=== PATIENT | female | born 1995 | race Caucasian/White ===

== ENCOUNTER 2017-06-12 15:19 | Emergency (ER) | payer OTHER ==
[2017-06-12 15:21] VITALS: BP 122/75; PULSE 97; RESP 16; TEMP 98.2; O2SAT 100
--- NOTE | 2017-06-12 15:57 | PD ---
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 Denies radiation of pain and is constant, mild to moderate. Patient states that she is also had a yellow, white discharge about 1 week. Patient was examined at [facility] and they were unable to locate her IUD that was placed in January. States she does not have normal menstrual periods because of the IUD and states that she spots throughout the month. In addition she had a urine test that was negative per patient. Patient denies fever, chills, nausea, vomiting, diarrhea. Also denies any urinary complaints. States she has one partner. She takes no medications and had no surgeries. PFSH Past Medical History ?: Not LMP: 2 weeks ago / STATES USUALLY JUST SPOTS FOR A DAY Social History Alcohol Use: No Tobacco Use: Yes Substance Use: Yes (marijuana) Allergies-Medications (Allergen,Severity, Reaction): Coded Allergies: menthol (Verified Allergy, Severe, RESP, 06/12/17) Reported Meds & Prescriptions Reported Meds & Active Scripts Active Metronidazole 500 Mg Tab 500 Mg PO BID 7 Days Review of Systems Except as stated in HPI: all other systems reviewed are Neg Physical Exam Narrative GENERAL: Well-developed well-nourished in no apparent distress SKIN: Focused skin assessment warm/dry. HEAD: Atraumatic. Normocephalic. EYES: Pupils equal and round. No scleral icterus. No injection or drainage. ENT: No nasal bleeding or discharge. Mucous membranes pink and moist. NECK: Trachea midline. No JVD. CARDIOVASCULAR: Regular rate and rhythm. No murmur appreciated. RESPIRATORY: No accessory muscle use. Clear to auscultation. Breath sounds equal bilaterally. - no external lesions, masses, or rashes. symmetric labia. vaginal exam- white and yellow exudate with clear secretions from os. anterior aspect of cervix- small portion of IUD visualized. No CMT, no adnexal masses. GASTROINTESTINAL: soft, mildly tender, lower abdominal region without masses, rebound tenderness. negative psoas. MUSCULOSKELETAL: No obvious deformities. No clubbing. No cyanosis. No edema. NEUROLOGICAL: Awake and alert. No obvious cranial nerve deficits. Motor grossly within normal limits. Normal speech. PSYCHIATRIC: Appropriate mood and affect; insight and judgment normal. Data Data Last Documented VS Vital Signs Date Time Temp Pulse Resp B/P (MAP) Pulse Ox O2 Delivery O2 Flow Rate FiO2 06/12/17 15:21 98.2 97 16 122/75 (91) 100 Room Air Orders Orders Complete Blood Count With Diff (06/12/17 16:15) Comprehensive Metabolic Panel (06/12/17 16:15) Gc And Chlamydia Pcr (06/12/17 16:15) Wet Prep Profile (06/12/17 16:15) Urinalysis - C+S If Indicated (06/12/17 16:15) Iv Access Insert/Monitor (06/12/17 16:15) Sodium Chloride 0.9% Flush (Ns Flush) (06/12/17 16:15) Sodium Chlor 0.9% 1000 Ml Inj (Ns 1000 M (06/12/17 16:15) Ed Urine Pregnancytest Poc (06/12/17 16:15) Us Pelvis Comp W Dop Transvag (06/12/17 16:15) Ed Discharge Order (06/12/17 17:45) Labs Laboratory Tests Test 06/12/17 16:35 06/12/17 16:40 Urine Color LIGHT-YELLOW Urine Turbidity CLEAR Urine pH 7.5 Urine Specific [place] 1.013 Urine Protein NEG mg/dL Urine Glucose (UA) NEG mg/dL Urine Ketones NEG mg/dL Urine Occult Blood NEG Urine Nitrite NEG Urine Bilirubin NEG Urine Urobilinogen LESS THAN 2.0 MG/DL Urine Leukocyte Esterase NEG Urine WBC LESS THAN 1 /hpf Microscopic Urinalysis Comment CULT NOT INDICATED Clue Cells (Wet Prep) NONE SEEN Vaginal Trichomonas (Wet Prep) NONE SEEN Vaginal Yeast (Wet Prep) NONE SEEN Chlamydia trachomatis DNA (PCR) NOT DETECTED Neisseria gonorrhoeae DNA (PCR) NOT DETECTED White Blood Count 11.3 TH/MM3 Red Blood Count 4.60 MIL/MM3 Hemoglobin 14.2 GM/DL Hematocrit 40.1 % Mean Corpuscular Volume 87.1 FL Mean Corpuscular Hemoglobin 30.9 PG Mean Corpuscular Hemoglobin Concent 35.5 % Red Cell Distribution Width 13.0 % Platelet Count 179 TH/MM3 Mean Platelet Volume 9.5 FL Neutrophils (%) (Auto) 72.1 % Lymphocytes (%) (Auto) 20.0 % Monocytes (%) (Auto) 6.5 % Eosinophils (%) (Auto) 1.0 % Basophils (%) (Auto) 0.4 % Neutrophils # (Auto) 8.2 TH/MM3 Lymphocytes # (Auto) 2.3 TH/MM3 Monocytes # (Auto) 0.7 TH/MM3 Eosinophils # (Auto) 0.1 TH/MM3 Basophils # (Auto) 0.1 TH/MM3 CBC Comment DIFF FINAL Differential Comment Blood Urea Nitrogen 12 MG/DL Creatinine 0.68 MG/DL Random Glucose 86 MG/DL Total Protein 7.4 GM/DL Albumin 3.8 GM/DL Calcium Level 8.7 MG/DL Alkaline Phosphatase 70 U/L Aspartate Amino Transf (AST/SGOT) 14 U/L Alanine Aminotransferase (ALT/SGPT) 15 U/L Total Bilirubin 0.4 MG/DL Sodium Level 138 MEQ/L Potassium Level 3.8 MEQ/L Chloride Level 105 MEQ/L Carbon Dioxide Level 26.9 MEQ/L Anion Gap 6 MEQ/L Estimat Glomerular Filtration Rate 110 ML/MIN MDM Medical Decision Making Medical Screen Exam Complete: Yes Emergency Medical Condition: Yes Differential Diagnosis Ovarian torsion, certified 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 Denies radiation of pain and is constant, mild to moderate. Patient states that she is also had a yellow, white discharge about 1 week. Patient was examined at [facility] and they were unable to locate her IUD that was placed in January. States she does not have normal menstrual periods because of the IUD and states that she spots throughout the month. In addition she had a urine test that was negative per patient. Patient denies fever, chills, nausea, vomiting, diarrhea. Also denies any urinary complaints. States she has one partner. She takes no medications and had no surgeries. Vital signs stable Physical exam- IUD tail in anterior cervix- difficulty visualizing secondary to vaginal secretions and only a small tail visualized. Labs stable. Last Impressions Abdomen/Pelvis/Transvag US 06/12/17 [id number] Signed Impressions: Service Date/Time: Monday, June 12, 2017 16:36 - CONCLUSION: 1. IUD appears to be appropriately positioned in the uterine cavity. 2. Dominant 3 cm follicular type cyst in left ovary. Small amount of physiologic fluid in the deep pelvis. Otherwise negative. Wiley Elder MD Her abdominal cramping was likely secondary to a follicular cyst. In addition, during the interview pt states that she has been unable to feel her IUD and was concerned that it moved. This may have bee the cause of her cramping as the tail of the IUD was just barely visualized. There was a concern for an infectious process during vaginal exam. Pt given metronidazole for BV. 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 Pt understood and will comply. Advised to use Tylenol or Motrin for pain. Diagnosis Primary Impression: Ovarian cyst Qualified Codes: N83.202 - Unspecified ovarian cyst, left side Additional Impression: Vaginitis Qualified Codes: N76.0 - Acute vaginitis Referrals: Primary Care Physician Additional Instructions: Follow-up with primary care physician within 2-3 days. Follow-up with your woods boss for reevaluation of your IUD. You may use Tylenol or Motrin per package instructions for pain. Scripts Metronidazole (Metronidazole) 500 Mg Tab 500 MG PO BID for Infection for 7 Days, #14 TAB 0 Refills Prov: Negin Gavin DO 06/12/17 Disposition: 01 DISCHARGE HOME Condition: Stable Ying Chavez Jun 12, 2017 15:57
[2017-06-12] MEDS ORDERED: SODIUM CHLORIDE 0.9% FLUSH 10 ML FLUSH IVF PRN (16:15)
[2017-06-12] MEDS ORDERED: SODIUM CHLOR 0.9% 1000 ML INJ 1,000 ML IV ONE (16:15)
[2017-06-12 17:18] LABS: AUTOMATED NEUTROPHIL # 8.2 TH/MM3 (1.8-7.7); BASOPHIL # 0.1 TH/MM3 (0-0.2); BASOPHIL % 0.4 % (0.0-2.0); EOSINOPHIL # 0.1 TH/MM3 (0-0.4); HEMATOCRIT 40.1 % (35.0-46.0); HEMO FLAGS DIFF FINAL; LYMPHOCYTE # 2.3 TH/MM3 (1.0-4.8); MEAN CELL VOLUME 87.1 FL (80.0-100.0); MEAN CORPUSCULAR HEMOGLOBIN 30.9 PG (27.0-34.0); MEAN CORPUSCULAR HGB CONC 35.5 % (32.0-36.0); MONO % 6.5 % (0.0-8.0); NEUT % 72.1 % (16.0-70.0); PLATELET COUNT 179 TH/MM3 (150-450); WHITE BLOOD COUNT 11.3 TH/MM3 (4.0-11.0)
[2017-06-12 17:21] LABS: BLOOD, URINE NEG (NEG); GLUCOSE,URINE NEG (NEG); KETONE, URINE NEG (NEG); NITRITE,URINE NEG (NEG); PH, URINE 7.5 (5.0-8.5); URINE COLOR LIGHT-YELLOW (YELLW/STRAW)
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
[2017-06-12 17:33] LABS: COMMENT (UR) CULT NOT INDICATED; CULTURE IF INDICATED CULT NOT INDICATED
[2017-06-12 17:43] LABS: ALT (GPT) 15 U/L (9-42); ANION GAP 6 MEQ/L (5-15); AST (GOT) 14 U/L (16-38); BICARBONATE 26.9 MEQ/L (21.0-32.0); BLOOD UREA NITROGEN 12 MG/DL (7-18); CHLORIDE 105 MEQ/L (98-107); GLOMERULAR FILTRATION RATE 110 ML/MIN (>89); POTASSIUM 3.8 MEQ/L (3.5-5.1); SODIUM (NA) 138 MEQ/L (136-145)
[2017-06-12 17:46] LABS: ALKALINE PHOSPHATASE 70 U/L (45-117); TOTAL BILIRUBIN ADULT 0.4 MG/DL (0.2-1.0)
[2017-06-12] MEDS ORDERED: METR1TAB76 PO (18:10)
[2017-06-12 19:33] LABS: CHLAMYDIA PCR NOT DETECTED (NOT DETECT); NEISSERIA PCR NOT DETECTED (NOT DETECT)
== END 2017-06-12 18:12 | disposition home or self-care (01) ==
LOC: NEPD 15:19
DX: N83.202 Unspecified ovarian cyst, left side (principal); N76.0 Acute vaginitis; Z72.0 Tobacco use; Z97.5 Presence of (intrauterine) contraceptive device
CPT/HCPCS: 76830; 76856; 80053; 81001; 84703; 85025; 87210; 87491; 87591; 93975; 99284; J7030

== ENCOUNTER 2017-10-30 13:16 | Emergency (ER) | payer OTHER ==
[~2017-10-30] VITALS: Ht 162.6 cm; Wt 56.8 kg
[~2017-10-30 13:16] MED LIST: METR1TAB76 PO
[2017-10-30 13:20] VITALS: BP 119/72; PULSE 94; RESP 18; TEMP 98.3; O2SAT 100
[2017-10-30] MEDS ORDERED: KETOROLAC TROMETHAMINE 60 MG/2 ML (IM) VIAL IM ONE (13:30)
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
[2017-10-30] MEDS ORDERED: DICL75TA PO (14:56)
== END 2017-10-30 15:09 | disposition home or self-care (01) ==
LOC: NEPK 13:16
DX: S86.912A Strain of unspecified muscle(s) and tendon(s) at lower leg level, left leg, initial encounter (principal); S16.1XXA Strain of muscle, fascia and tendon at neck level, initial encounter; F12.90 Cannabis use, unspecified, uncomplicated; V43.52XA Car driver injured in collision with other type car in traffic accident, initial encounter; Y92.488 Other paved roadways as the place of occurrence of the external cause; Z72.0 Tobacco use
CPT/HCPCS: 72125; 73564; 96372; 99284; J1885